=== PATIENT | male | born 2000 ===

== ENCOUNTER 2020-09-16 15:57 | Emergency (ER) | payer SELFPAY ==
[~2020-09-16] VITALS: Ht 172.7 cm; Wt 87.5 kg
--- NOTE | 2020-09-16 16:37 | NUR ---
CLARICE RN: PT REPORTS A COUGH AND THAT HE HAS HAD TO SPIT A LOT. PT HAS BEEN SEEN BY [facility]. VS STABLE. NO ACUTE DISTRESS NOTED. PT GIVEN A UA CUP. CALL LIGHT IN PLACE. REPORT GIVEN TO BRANDON HARTMAN
[2020-09-16 17:01] LABS: BASOPHILS % (AUTO) 0 % (0-1); EOSINOPHILS % (AUTO) 1 % (1-7); LYMPHOCYTES % (AUTO) 16 % (22-44); MEAN CORPUSCULAR HEMOGLOBIN 31.8 pg (27.5-34.5); MEAN CORPUSCULAR HGB CONC 34.6 g/dL (33.2-36.2); MEAN PLATELET VOLUME 8.5 fL (7.4-10.4); MONOCYTES % (AUTO) 7 % (2-9); NEUTROPHILS % (AUTO) 76 % (42-75); PLATELET COUNT 293 x10^3/uL (130-400); RED BLOOD COUNT 4.97 x10^6/uL (4.38-5.82); RED CELL DISTRIBUTION WIDTH 12.9 % (9.4-14.8)
[2020-09-16 17:04] LABS: MD NO
--- NOTE | 2020-09-16 17:05 | NUR ---
This RN at bedside, asking pt. for UA. Pt reports he cannot go now.
[2020-09-16 17:06] LABS: CALCIUM 8.9 mg/dL (8.5-10.1); CREATININE 0.98 mg/dL (0.7-1.3)
[2020-09-16 17:13] LABS: CHLORIDE 108 mmol/L (98-107)
[2020-09-16 17:14] LABS: ANION GAP 5 mmol/L (5-15)
--- NOTE | 2020-09-16 17:18 | NUR ---
UA sent to lab
[2020-09-16 17:39] LABS: AMPHETAMINE SCREEN, URINE Negative (Negative); BARBITURATE SCREEN, URINE Negative (Negative); BENZODIAZEPINE SCREEN, URINE Negative (Negative); CANNABINOID SCREEN, URINE Positive (Negative); COCAINE SCREEN, URINE Negative (Negative); METHADONE SCREEN, URINE Negative (Negative); OPIATE SCREEN, URINE Negative (Negative)
[2020-09-16 18:45] VITALS: BP 122/71
== END 2020-09-16 18:47 | disposition home or self-care (01) ==
LOC: ED 16:49
DX: F12.20 Cannabis dependence, uncomplicated (principal); M79.10 Myalgia, unspecified site; R07.89 Other chest pain
CPT/HCPCS: 36415; 71045; 80048; 80307; 82040; 85025; 99284